=== PATIENT | female | born 1980 | race Caucasian/White ===

== ENCOUNTER 2016-12-20 08:11 | Inpatient (IN) | payer OTHER ==
[~2016-12-20] VITALS: Ht 165.1 cm; Wt 63.3 kg
[2016-12-20] VITALS (33 sets, daily range): BP systolic 89–134; BP diastolic 46–87; PULSE 61–114; RESP 10–25; Ht 165.1 cm; Wt 63.3 kg
--- NOTE | 2016-12-20 06:47 | HPN ---
Date/Time of Note Date/Time of Note DATE: 12/20/16 TIME: 06:47 Interval H&P Admission Note Pt. seen H&P reviewed: No system changes POOJA LOU MD Dec 20, 2016 06:47
[~2016-12-20 08:11] MED LIST changes: -BUPIVACAINE 0.5% (SDV) 30 ML, morphine SULFATE (PF) 8 MG, EPINEPHrine 0.3 MG, KETOROLAC... IRR SCH; -BUPIVACAINE 0.5%/EPI (SDV) 10 ML INJ ONE; -CEFAZOLIN 1 GM INJ ONE; -CEFAZOLIN 2 GM/50 ML (PMX) 50 ML IVPB SCH; -FENTAnyl 50 MCG/ML VIAL ONE; -GABAPENTIN 300 MG CAP PO SCH; -LIDOCAINE 2% (SDV) 5 ML INJ ONE; -PROPOFOL 20 ML ONE; -ROCURONIUM 50 MG INJ ONE; -SUCCINYLCHOLINE CHLORIDE 100 MG/5 ML SYG IV ONE; -SUGAMMADEX SODIUM 200 MG/2 ML VIAL IV ONE; -traMADol 50 MG TAB PO SCH
[2016-12-20] MEDS ORDERED: traMADol 50 MG TAB PO SCH (12:00)
[2016-12-20] MEDS ORDERED: PREGABALIN 300 MG PO X1 PO SCH (12:00)
[2016-12-20] MEDS ORDERED: CEFAZOLIN 2GM/50 ML (PMX) 50 ML X1 BEFORE INCISION IVPB SCH (12:00)
[2016-12-20] MEDS ORDERED: PAIN COCKTAIL - VANCOMYCIN IRR SCH ×7 (12:30)
[2016-12-20] MEDS ORDERED: DIPHENHYDRAMINE 50 MG INJ IV PRN ×2 (14:00→15:00)
[2016-12-20] MEDS ORDERED: MEPERIDINE 25 MG INJ IV PRN (14:00)
[2016-12-20] MEDS ORDERED: FENTAnyl 50 MCG/ML VIAL IV PRN (14:00)
--- NOTE | 2016-12-20 14:13 | PDOCDIS ---
Discharge Instructions DIAGNOSIS Discharge Diagnosis Right hip labral tear with labral deficiency CONDITION Patient Condition: Good HOME CARE INSTRUCTIONS: Diet Instructions: Regular ACTIVITY: Activity Restrictions: Slowly Increase Activity Keep Limb Elevated Bathing Restrictions: Shower SCHOOL/WORK RELEASE May return to School/Work with: With Restrictions School/Work Release Comment: Foot flat weightbearing with crutches for 4 weeks POOJA LOU MD Dec 20, 2016 14:13
--- NOTE | 2016-12-20 14:21 | OPR ---
Date/Time of Note Date/Time of Note DATE: 12/20/16 TIME: 14:14 Operative Report Procedure Date: Dec 20, 2016 Preoperative Diagnosis Right hip labral tear with labral deficiency Postoperative Diagnosis Right hip labral tear with labral deficiency Operation Performed Right hip arthroscopic labral reconstruction using iliotibial band autograft Surgeon: POOJA LOU MD Stock Turner: EMMY ROBLES MD Anesthesia: general Estimated Blood Loss: 10 - 50 ml's Complications: None Pt Condition Post Procedure: stable Disposition: PACU, other Procedure Description INSURANCE CLAIMS CLERK SURGEON: Emmy Robles MD was asked to be present at my request as a result of the significant surgical complexity associated with this procedure. This includes positioning of the 70 arthroscope and complex suture management that is involved in the fixation of this tissue. In my opinion, the assistance offered by a surgical garment assembler is insufficient and Dr. Robles should be compensated for her time. PROCEDURE IN DETAIL: Following the administration of general orotracheal anesthesia supplemented with local block performed by myself, the patient was then placed in the supine position on the Angulo and nephew traction device. Sterile prep and drape was then undertaken of the right lower extremity. Traction was then applied. Using endoscopic and fluoroscopic guidance, the central compartment was then entered through anterior and anterolateral portals. Diagnostic arthroscopy of the joint at this point revealed that the anterior labrum for a distance of 3 cm was completely deficient. The prior repair of the very fibrinous tissue had not completely taken. With respect to the rest of the joint, the femoral cartilage appeared normal. There is some superficial chondral delamination at the periphery where the labral deficiency occurred and there was a arnoldo area of grade 4 delamination anteriorly measuring about 5 x 5 mm at approximately the 12 o'clock position. The ligamentum teres appeared normal with some mild synovitis. The labral deficient area was then debrided and the bone was exposed. An arc of bone measuring 3 cm was then prepared for the labral reconstruction. The arthroscopic equipment was then removed and a lateral incision was then made along the iliotibial band. A 3 cm graft was then fashioned and prepared using running locking stitches. The arthroscopic equipment was then inserted once again and a medial drill hole was then created. An Arthrex Push lock anchor was then fashioned into the hole along with the suture from the medial aspect of the graft which had been passed from an accessory lateral portal that was created. Good fixation was obtained medially. The lateral drill hole was then created at the extreme edge of the 3 cm graft. The graft was then incorporated into the suture the suture was advanced and an additional Arthrex push lock anchor was then placed laterally. A previously placed central stitch was then also incorporated into the reconstruction and a third Arthrex anchor was then inserted very solid fixation of the graft tissue was noted with good reconstruction of the labrum and a good labial seal once the leg was taken out of traction and flexed. All of the wounds were irrigated the superficial wounds were closed using 4-0 Monocryl. The deep closure involved 2-0 Vicryl and 4-0 Monocryl for the superficial skin. A Prenio dressing was then applied. The patient was then awakened and transported to recovery in stable condition tolerating the procedure well. POOJA LOU MD Dec 20, 2016 14:20
[2016-12-20] MEDS ORDERED: LORAZEPAM 2 MG INJ ONE (14:26)
[2016-12-20] MEDS ORDERED: LORAZEPAM 2 MG INJ IV ONE (14:30)
[2016-12-20] MEDS ORDERED: LACTATED RINGER'S 1,000 ML IV SCH (14:55)
[2016-12-20] MEDS ORDERED: ONDANSETRON 4 MG INJ IV PRN (15:00)
[2016-12-20] MEDS ORDERED: MAGNESIUM HYDROXIDE 30ML CUP PO PRN (15:00)
[2016-12-20] MEDS ORDERED: ACETAMINOPHEN 500 MG TAB PO PRN (15:00)
[2016-12-20] MEDS ORDERED: TRANEXAMIC ACID 1,000 MG in SOD CHLORIDE 0.9% 100 ML IV ONE (15:00)
[2016-12-20] MEDS ORDERED: ZOLPIDEM 5 MG TAB PO PRN (15:00)
[2016-12-20] MEDS ORDERED: OXYCODONE/ACETAMINOPHEN (5/325) TAB PO PRN ×2 (15:00)
[2016-12-20] MEDS ORDERED: LORAZEPAM 2 MG INJ IM ONE (15:00)
[2016-12-20] MEDS ORDERED: morphine 4 MG/ML VIAL IV PRN (15:00)
[2016-12-20] MEDS ORDERED: morphine 2 MG INJ IV PRN (15:00)
[2016-12-20] MEDS: CEFAZOLIN 1 GM/50 ML (PMX) 50 ML IVPB SCH ×2 (15:28→23:20)
[2016-12-20] MEDS ORDERED: NALOXONE (0.4 MG/ML) INJ IV STA ×2 (16:55)
--- NOTE | 2016-12-20 16:59 | EN ---
Date/Time of Note Date/Time of Note DATE: 12/20/16 TIME: 16:56 Event Note Medicine Medicine Event Note Rapid Response called for nonresponsiveness Patient recently out of PACU for hip arthroplasty. She received fentanyl and morphine patch to her hip. In PACU developed odd movements concerning for seizure so was given ativan. When seen on the floor, she was extremely somnulent. Vitals were stable aside from low respiratory rate, though saturating 100% on O2 by NC. 0.4 of narcan was given with immediate improvement in alertness and ventilatory status, though remains somnulent. Presume this is opiate overdose. Will transfer patient to the ICU for narcan drip and frequent monitoring Narcan should be targeted to ventilatory status rather than alertness JAZMIN MENDOZA MD Dec 20, 2016 16:59
[2016-12-20] MEDS ORDERED: NALOXONE (0.4 MG/ML) INJ IV PRN (17:00)
[2016-12-20 17:04] LABS: BASOPHILS % 0.2 % (0.0-2.0); EOSINOPHILS % 0.2 % (0.0-7.0); HEMOGLOBIN 10.8 g/dl (12.0-16.0); LYMPHOCYTES # 1.4 10^3/ul (0.8-2.9); LYMPHOCYTES % 21.3 % (15.0-51.0); MEAN CORPUSCULAR HEMOGLOBIN 32.6 pg (29.0-33.0); MEAN CORPUSCULAR HGB CONC 34.8 g/dl (32.0-37.0); MEAN CORPUSCULAR VOLUME 93.7 fl (82.0-101.0); MEAN PLATELET VOLUME 9.1 fl (7.4-10.4); MONOCYTE # 0.5 10^3/ul (0.3-0.9); MONOCYTES % 6.9 % (0.0-11.0); NEUTROPHIL # 4.6 10^3/ul (1.6-7.5); NEUTROPHILS % 71.1 % (39.0-77.0); PLATELET COUNT 215 10^3/UL (140-415); RED BLOOD COUNT 3.31 10^6/ul (4.20-5.40); RED CELL DISTRIBUTION WIDTH 13.1 % (11.5-14.5); WHITE BLOOD COUNT 6.5 10^3/ul (4.8-10.8)
[2016-12-20 17:26] LABS: ALBUMIN 3.7 g/dl (3.3-4.9); ALBUMIN/GLOBULIN RATIO 1.48; BILIRUBIN,INDIRECT 0.5 mg/dl (0-1.1); BILIRUBIN,TOTAL 0.5 mg/dl (0.2-1.3); CALCIUM 8.5 mg/dl (8.4-10.2); CREATININE 0.73 mg/dl (0.44-1.00); POTASSIUM 3.5 mmol/L (3.5-5.1); TOTAL PROTEIN 6.2 g/dl (6.1-8.1)
[2016-12-20] MEDS: DEXAMETHASONE 2 MG TAB PO SCH ×2 (17:37→23:20)
[2016-12-20] MEDS: KETOROLAC 15 MG INJ IV PRN (19:26)
[2016-12-20] MEDS: SENNA/DOCUSATE NA (8.6MG/50MG) TAB PO SCH (21:07)
[2016-12-21] VITALS (14 sets, daily range): BP systolic 85–99; BP diastolic 45–72; PULSE 54–89; RESP 14–26
[2016-12-21] MEDS: KETOROLAC 15 MG INJ IV PRN (02:24)
[2016-12-21] MEDS: DEXAMETHASONE 2 MG TAB PO SCH ×2 (06:32→12:00)
[2016-12-21] MEDS: CEFAZOLIN 1 GM/50 ML (PMX) 50 ML IVPB SCH (06:32)
[2016-12-21] MEDS ORDERED: NALOXONE (0.4 MG/ML) INJ ONE (07:00)
--- NOTE | 2016-12-21 07:00 | PN ---
Date/Time of Note Date/Time of Note DATE: 12/21/16 TIME: 06:59 24 hour Interval Summary Patient is now awake and alert with no complaints. She has not had any pain medications other than Toradol overnight. Physical Exam Physical examination reveals that she is neurologically intact in the right lower extremity. There is no swelling. The wound is clean and dry. There are no signs of DVT. She is awake and alert. Vital Signs Date Time Temp Pulse Resp B/P Pulse Ox O2 Delivery O2 Flow Rate FiO2 12/21/16 05:00 54 17 85/54 100 Room Air 12/21/16 04:00 98.3 12/20/16 18:00 1.0 Intake and Output 12/20/16 12/20/16 12/21/16 15:00 23:00 07:00 Intake Total 900 ml 900 ml 550 ml Output Total 5 ml 865 ml 800 ml Balance 895 ml 35 ml -250 ml VTE Prophylaxis VTE Prophylaxis Intervention: anti-embolic stocking Lines/Catheters IV Catheter Type: Saline Lock [place] in Place: No Results Result Diagram: 12/20/16 1658 12/20/16 1658 Results 24hrs Laboratory Tests Test 12/20/16 16:26 12/20/16 16:58 Bedside Glucose 98 White Blood Count 6.5 # Red Blood Count 3.31 #L Hemoglobin 10.8 #L Hematocrit 31.0 #L Mean Corpuscular Volume 93.7 Mean Corpuscular Hemoglobin 32.6 Mean Corpuscular Hemoglobin Concent 34.8 Red Cell Distribution Width 13.1 Platelet Count 215 Mean Platelet Volume 9.1 Neutrophils % 71.1 Lymphocytes % 21.3 Monocytes % 6.9 Eosinophils % 0.2 Basophils % 0.2 Nucleated Red Blood Cells % 0.0 Neutrophils # 4.6 Lymphocytes # 1.4 Monocytes # 0.5 Eosinophils # 0.0 Basophils # 0.0 Nucleated Red Blood Cells # 0.0 Sodium Level 144 Potassium Level 3.5 Chloride Level 107 Carbon Dioxide Level 25 Anion Gap 16 Blood Urea Nitrogen 9 Creatinine 0.73 Glucose Level 89 Calcium Level 8.5 Total Bilirubin 0.5 Direct Bilirubin 0.00 Indirect Bilirubin 0.5 Aspartate Amino Transf (AST/SGOT) 19 Alanine Aminotransferase (ALT/SGPT) 28 Alkaline Phosphatase 41 L Total Protein 6.2 Albumin 3.7 Globulin 2.50 Albumin/Globulin Ratio 1.48 Assessment/Plan Assessment/Plan Assessment: Status post hip labral reconstruction with acute event secondary to morphine relative overdose. She appears to be stable at this point she is awake and alert and has not been taking any medications overnight. She will be discharged following physical therapy this morning. Medications Medications Home Meds Discontinued Reported Medications Acetaminophen-Codeine* (Acetaminophen-Cod #3*) 300-30 Mg Tab, 1 TAB PO Q4H Y for PAIN, #30 TAB 06/16/15 Ibuprofen* (Ibuprofen*) 800 Mg Tablet, 1200 MG PO Q8 Y for PAIN, TAB 06/16/15 Pregabalin* (Lyrica*) 50 Mg Capsule, 50 MG PO BID Y for PAIN, CAP 06/16/15 POOJA LOU MD Dec 21, 2016 07:00
--- NOTE | 2016-12-21 07:02 | DS ---
Date/Time of Note Date/Time of Note DATE: 12/21/16 TIME: 07:01 Discharge Summary Admission/Discharge Info Admit Date/Time Dec 21, 2016 at 01:18 Discharge Date/Time December 21, 2016 Discharge Diagnosis 1 . right hip labral tear with labral deficiency 2. Apnea secondary to morphine Patient Condition: Good Procedures Right hip arthroscopy with labral reconstruction using autogenous iliotibial band graft Hx of Present Illness Pain and stiffness following remote hip arthroscopy 2 years prior. Hospital Course Patient was admitted and underwent an uncomplicated procedure. In the recovery room and subsequently in the room upstairs, she developed what appeared to be overly sedated. Subsequent evaluation revealed that time she had received a fair amount of morphine and there is probably a relative narcotic overdose. Narcan was administered and the patient became awake and alert almost immediately. She was then sent to the intensive care unit overnight. In the intensive care unit, she had no problems and was awake and alert in the morning. She will be cleared by physical therapy and then discharged home. Home Meds Discontinued Reported Medications Acetaminophen-Codeine* (Acetaminophen-Cod #3*) 300-30 Mg Tab, 1 TAB PO Q4H Y for PAIN, #30 TAB 06/16/15 Ibuprofen* (Ibuprofen*) 800 Mg Tablet, 1200 MG PO Q8 Y for PAIN, TAB 06/16/15 Pregabalin* (Lyrica*) 50 Mg Capsule, 50 MG PO BID Y for PAIN, CAP 06/16/15 Primary Care Provider Pending Labs Laboratory Tests Test 12/20/16 16:26 12/20/16 16:58 Bedside Glucose 98mg/dL (70-220) White Blood Count 6.510^3/ul (4.8-10.8) Red Blood Count 3.3110^6/ul (4.20-5.40) Hemoglobin 10.8g/dl (12.0-16.0) Hematocrit 31.0% (37.0-47.0) Mean Corpuscular Volume 93.7fl (82.0-101.0) Mean Corpuscular Hemoglobin 32.6pg (29.0-33.0) Mean Corpuscular Hemoglobin Concent 34.8g/dl (32.0-37.0) Red Cell Distribution Width 13.1% (11.5-14.5) Platelet Count 66260^3/UL (140-415) Mean Platelet Volume 9.1fl (7.4-10.4) Neutrophils % 71.1% (39.0-77.0) Lymphocytes % 21.3% (15.0-51.0) Monocytes % 6.9% (0.0-11.0) Eosinophils % 0.2% (0.0-7.0) Basophils % 0.2% (0.0-2.0) Nucleated Red Blood Cells % 0.0/100WBC (0.0-0.0) Neutrophils # 4.610^3/ul (1.6-7.5) Lymphocytes # 1.410^3/ul (0.8-2.9) Monocytes # 0.510^3/ul (0.3-0.9) Eosinophils # 0.010^3/ul (0.0-0.5) Basophils # 0.010^3/ul (0.0-0.1) Nucleated Red Blood Cells # 0.010^3/ul (0.0-0.0) Sodium Level 144mmol/L (135-144) Potassium Level 3.5mmol/L (3.5-5.1) Chloride Level 107mmol/L (97-110) Carbon Dioxide Level 25mmol/L (21-31) Anion Gap 16 (8-16) Blood Urea Nitrogen 9mg/dl (7-20) Creatinine 0.73mg/dl (0.44-1.00) Glucose Level 89mg/dl (70-220) Calcium Level 8.5mg/dl (8.4-10.2) Total Bilirubin 0.5mg/dl (0.2-1.3) Direct Bilirubin 0.00mg/dl (0.00-0.20) Indirect Bilirubin 0.5mg/dl (0-1.1) Aspartate Amino Transf (AST/SGOT) 19IU/L (15-46) Alanine Aminotransferase (ALT/SGPT) 28IU/L (13-69) Alkaline Phosphatase 41IU/L (42-121) Total Protein 6.2g/dl (6.1-8.1) Albumin 3.7g/dl (3.3-4.9) Globulin 2.50g/dl (1.3-3.2) Albumin/Globulin Ratio 1.48 POOJA LOU MD Dec 21, 2016 07:02
[2016-12-21] MEDS ORDERED: ASPIRIN 81 MG TAB PO SCH (09:00)
[2016-12-21] MEDS: SENNA/DOCUSATE NA (8.6MG/50MG) TAB PO SCH (09:00)
--- NOTE | 2016-12-21 19:03 | RADRPT ---
Vent Rate: 100 bpm RR Interval: 0 msec GA Interval: 142 msec QRS Duration: 78 msec QT Interval: 348 msec QTC Interval: 448 msec P-R-T [place]: 49 - 80 - 40 degrees Normal sinus rhythm Normal ECG Electronically Signed By: Tee Matute [id number]
== END 2016-12-21 13:35 | disposition home or self-care (01) | DRG 482 ==
LOC: SDS 08:11 → MS1 15:54 → UNDOFXSDCSVC 15:54 → MS1 17:15 → ICU 17:15 → UNDOFXSDCSVC 17:15 → UNDOFXSDCACCOM 17:15 → SDS 12-21 01:18 → ICU 12-21 01:18
PROVIDERS: ADMIT Orthopaedic Surgery; ATTEND Orthopaedic Surgery
PROC: 0SQ94ZZ Repair Right Hip Joint, Percutaneous Endoscopic Approach (ICD-10-PCS; principal; 2016-12-20 13:00)
DX: M24.151 Other articular cartilage disorders, right hip (principal); R06.81 Apnea, not elsewhere classified; J70.8 Respiratory conditions due to other specified external agents; T40.2X5A Adverse effect of other opioids, initial encounter; Y92.238 Other place in hospital as the place of occurrence of the external cause
CPT/HCPCS: 80053; 82962; 85025; 93005; 97163; J0171; J0690; J0735; J1885; J2060; J2274; J2310; J3370; J7120

== ENCOUNTER → 2016-12-20 | Day surgery (SDC) | payer SELFPAY ==
[~2016-12-20] MED LIST: ACET1TAB40 PO; BUPIVACAINE 0.5% (SDV) 30 ML, morphine SULFATE (PF) 8 MG, EPINEPHrine 0.3 MG, KETOROLAC... IRR SCH; BUPIVACAINE 0.5%/EPI (SDV) 10 ML INJ ONE; CEFAZOLIN 1 GM INJ ONE; CEFAZOLIN 2 GM/50 ML (PMX) 50 ML IVPB SCH; FENTAnyl 50 MCG/ML VIAL ONE; GABAPENTIN 300 MG CAP PO SCH; IBUP800T25 PO; LIDOCAINE 2% (SDV) 5 ML INJ ONE; PREG50CA PO; PROPOFOL 20 ML ONE; ROCURONIUM 50 MG INJ ONE; SUCCINYLCHOLINE CHLORIDE 100 MG/5 ML SYG IV ONE; SUGAMMADEX SODIUM 200 MG/2 ML VIAL IV ONE; traMADol 50 MG TAB PO SCH
--- NOTE | 2016-12-21 14:40 | CONS ---
Date/Time of Note Date/Time of Note DATE: 12/21/16 TIME: 14:35 Consultation Date/Type/Reason Admit Date/Time Initial Consult Date 12/21/16 Type of Consultation: Anesthesiology Reason for Consultation follow up 24 HR Interval Summary Free Text/Dictation Pt seen and examined at bedside is POD#1 s/p Right Hip Arthroscopy and debridment with labral repair. Pt did well intra-op and was brought to PACU awake and alert. About 10 mins after arrival in PACU pt started exhibiting abnormal features with movements of her eyes and hands but was alert when spoken to. When asked what was wrong, she replied that she feels her brain is jumping. Pt states prior to surgery that she has this occur every time she undergoes an operation but could never figure out what it was from. Pt was given Ativan in PACU and relaxed but then started to exhibit the same symptoms some time later. She was later transferred to ICU for monitoring overnight. This am she was fully alert and awake and states she does not remember anything from yesterday. She is currently being followed by her primary. Pain is well controlled and she is planned for discharge soon. No N/V/D/C/LEIVA. Will continue to follow. Constitutional: improved, no complaints CARLY BAER Dec 21, 2016 14:40
== END | disposition home or self-care (01) ==
LOC: MERGE 08:00 → SDS 08:00 → MERGE 11:00 → UNMERGE 11:00
PROVIDERS: ATTEND Orthopaedic Surgery
DX: S73.101D Unspecified sprain of right hip, subsequent encounter (principal); X58.XXXD Exposure to other specified factors, subsequent encounter; Z53.9 Procedure and treatment not carried out, unspecified reason
CPT/HCPCS: 73530; J0690; J3010; J7999

== ENCOUNTER 2016-12-22 23:17 | Emergency (ER) | payer SELFPAY ==
[~2016-12-22] VITALS: Ht 172.7 cm; Wt 63.6 kg
[2016-12-22 23:29] VITALS: Ht 172.7 cm; Wt 63.6 kg
--- NOTE | 2016-12-23 00:54 | RADRPT ---
PROCEDURE: US right lower extremity venous Doppler CLINICAL INDICATION: Right leg swelling TECHNIQUE: Multiple sonographic images of the right lower extremity deep venous system was obtaine d utilizing grayscale, color-flow, compressive sonography and Doppler imaging with augmentation. COMPARISON: No pertinent prior examinations were submitted for comparison. FINDINGS: There is normal compressibility and flow within the right common femoral, superficial femoral, popli teal, and peroneal veins. IMPRESSION: No sonographic evidence for deep venous thrombosis. RPTAT: HIKT .Marcos London MD, MD Date Time Electronically viewed and signed by .Marcos London MD, MD on 12/23/2016 00:54 .T/
[2016-12-23] MEDS ORDERED: IBUP800T25 PO (01:00)
--- NOTE | 2016-12-23 01:32 | ERD ---
ER Documentation Chief Complaint Date/Time DATE: 12/23/16 TIME: 01:27 Chief Complaint pain behind right knee x 1 day, s/p right hip surgery x2 days ago HPI 36-year-old female complaining of pain behind the right knee 1 day. Patient stated that she had hip surgery of the day before. Patient reports swelling of the right leg. Denies shortness of breath. Patient was given Percocet by her surgeon for pain, but states that she could not tolerate Percocet due to vomiting. ROS All systems reviewed and are negative except as per history of present illness. Medications Home Meds Active Scripts Ibuprofen* (Motrin*) 800 Mg Tab, 800 MG PO Q8 Y for PAIN AND OR ELEVATED TEMP, # 30 TAB Prov:ROXANNA CORDOVA [employer] 12/23/16 Discontinued Reported Medications Acetaminophen-Codeine* (Acetaminophen-Cod #3*) 300-30 Mg Tab, 1 TAB PO Q4H Y for PAIN, #30 TAB 06/16/15 Ibuprofen* (Ibuprofen*) 800 Mg Tablet, 1200 MG PO Q8 Y for PAIN, TAB 06/16/15 Pregabalin* (Lyrica*) 50 Mg Capsule, 50 MG PO BID Y for PAIN, CAP 06/16/15 Allergies Allergies: Coded Allergies: No Known Allergy (Unverified , 12/22/16) PMhx/Soc History of Surgery: Yes (RT HIP SX, APPENDECTOMY,LAPAROSCOPY) Anesthesia Reaction: Yes (PT STATES HAD SEIZURE LIKE ACTIVITY AFTER ANESTHESIA) Hx Neurological Disorder: No Hx Respiratory Disorders: No Hx Cardiac Disorders: No Hx Psychiatric Problems: No Hx Miscellaneous Medical Probl: Yes (See EMR for more detail. ) Hx Alcohol Use: Yes Hx Substance Use: No Hx Tobacco Use: No Smoking Status: Never smoker Physical Exam Vitals Vital Signs Date Time Temp Pulse Resp B/P Pulse Ox O2 Delivery O2 Flow Rate FiO2 12/22/16 23:29 98.0 72 20 122/71 100 Physical Exam General: Well-developed, well-nourished, conscious and coherent, in no distress Skin: Warm and dry without rash, good texture and turgor Head: Normocephalic without evidence of trauma Eyes: Sclera and conjunctivae normal; pupils equal, round, and reactive to light; extraocular movements are intact Chest: Normal AP diameter. Good expansion without retractions. Nontender. Lungs are clear to auscultate bilaterally with good tidal volume Heart: Regular rate and rhythm. No murmur, rub, or gallops heard Extremities: Full range of motion. Good strength bilaterally. No clubbing, cyanosis, or edema. Peripheral pulses are intact. Sensation intact. Surgical scar in the lateral right hip. Mild tenderness posterior lateral aspect of the right knee. No erythema or edema of the right lower extremity. Extremity cool to touch. Neuro: Alert and oriented 4, GCS 15. Cranial nerves grossly intact. Motor and sensory exams nonfocal. Moves all extremities. Speech clear. Gait normal Results 24 hrs PROCEDURE: US right lower extremity venous Doppler CLINICAL INDICATION: Right leg swelling TECHNIQUE: Multiple sonographic images of the right lower extremity deep venous system was obtained utilizing grayscale, color-flow, compressive sonography and Doppler imaging with augmentation. COMPARISON: No pertinent prior examinations were submitted for comparison. FINDINGS: There is normal compressibility and flow within the right common femoral, superficial femoral, popliteal, and peroneal veins. IMPRESSION: No sonographic evidence for deep venous thrombosis. RPTAT: HIKT .Marcos London MD, MD Date Time Electronically viewed and signed by .Marcos London MD, MD on 12/23/2016 00:54 .T/ CC: ROXANNA CORDOVA. [employer] Procedures/MDM Well-appearing 36-year-old female presented ED with right knee pain status post hip surgery. Doppler ultrasound of the right lower extremity was obtained, no DVT is noted on Doppler. I doubt DVT or cellulitis. Low suspicion for PE. Likely her pain is due to her postsurgical status. Patient unable to tolerate narcotic pain medications. I plan to prescribe ibuprofen for her. However, patient eloped after Doppler ultrasound. Disclaimer: Inadvertent spelling and grammatical errors are likely due to EHR/ dictation software use and do not reflect on the overall quality of patient care. Also, please note that the electronic time recorded on this note does not necessarily reflect the actual time of the patient encounter. Departure Diagnosis: Primary Impression: Pain of right leg Condition: Stable Patient Instructions: Managing Post-Op Pain at Home: Medications, Managing Post -Op Pain at Home: Non-Medication Relief, Post-Hip Replacement: Ankle Pumps, Quad Sets, Leg Raises Referrals: DOCTOR,NOT ON STAFF (PCP) POOJA LOU MD [facility] YOU HAVE RECEIVED A MEDICAL SCREENING EXAM AND THE RESULTS INDICATE THAT YOU DO NOT HAVE A CONDITION THAT REQUIRES URGENT TREATMENT IN THE EMERGENCY DEPARTMENT. FURTHER EVALUATION AND TREATMENT OF YOUR CONDITION CAN WAIT UNTIL YOU ARE SEEN IN YOUR DOCTORS OFFICE WITHIN THE NEXT 1-2 DAYS. IT IS YOUR RESPONSIBILITY TO MAKE AN APPOINTMENT FOR FOLOW-UP CARE. IF YOU HAVE A PRIMARY DOCTOR --you should call your primary doctor and schedule an appointment IF YOU DO NOT HAVE A PRIMARY DOCTOR YOU CAN CALL OUR PHYSICIAN REFERRAL HOTLINE AT IF YOU CAN NOT AFFORD TO SEE A PHYSICIAN YOU CAN CHOSE FROM THE FOLLOWING [facility] [address] [facility]. [facility] [address] [employer] [facility] [address] [facility] [facility] [address] [facility] [address] [facility]. [facility] [address] Additional Instructions: Follow up with your surgeon as scheduled. Return to ER if your leg becomes red and swollen, or if you have shortness of breath. ROXANNA CORDOVA NP Dec 23, 2016 01:32
== END 2016-12-23 01:25 | disposition left against medical advice (07) ==
LOC: FTE 23:17
DX: M25.561 Pain in right knee (principal)
CPT/HCPCS: 93971